=== PATIENT | male | born 1980 | race Caucasian/White ===

== ENCOUNTER → 2018-07-29 | Outpatient (CLI) | payer OTHER ==
[~2018-07-29] MED LIST: AMOX-559 PO
[2018-07-29 08:06] LABS: PLATELET COUNT, AUTOMATED 197 K/uL (150-450)
[2018-07-29 09:22] LABS: LDL CHOLESTEROL 141 mg/dl
== END ==
LOC: LAB 07:49
PROVIDERS: ATTEND Emergency Medicine
DX: E83.19 Other disorders of iron metabolism (principal); R53.83 Other fatigue
CPT/HCPCS: 36415; 81256; 82040; 82247; 82306; 82310; 82374; 82435; 82465; 82565; 82607; 82728; 82947; 83036; 83540; 83550; 83718; 84075; 84132; 84155; 84295; 84403; 84443; 84450; 84460; 84478; 84520; 85025